=== PATIENT | male | born 1960 ===

== ENCOUNTER 2024-03-12 16:34 | Outpatient (CLI) | payer OTHER, SELFPAY ==
--- OUTSIDE RECORDS SUMMARY | 2024-03-12 16:52 | XMS_ITS | Encounter Summary ---
Author Organization [facility] Address [address] [place] [address] Care Team Providers Care Aerosol Supervisor Name Role Phone None, Provider Primary Care Provider Unavailabl e Encounter Details Date Type Department Care Team (Late st Contact Info) Description 04/27/2021 Lab Requisition [facility] Pathology & Laboratory Medicine - [address] [address] Lele Aponte MD [address] [place] [address] ,[facility] [address] [place] [address] Encounter for other general examination Social History Tobacco Use Types Packs/Day Years Used Date Smoking Tobacco: Never Assessed Sex and Gender Information Value Date Recorded Sex Assigned at Not on file Gender Identity Not on file Sexual Orientation Not on file documented as of this encounter Plan of Treatment Not on file documented as of this encounter Procedures Procedure Name Priority Date/Time Associated Diagnosis Comments SURGICAL PATHOLOGY Today 04/27/2021 13 :08 EST documented in this encounter Results * SURGICAL PATHOLOGY (04/27/2021 13:08 EST) Note to Patient The following pathology results have been interpreted by your pathologist and may be available to you before your health provider has had the opportunity to review them. Please allow time for your provider to receive these results and explore management options, if applicable. 04/30/2021 10:48 EST [facility] Final Diagnosis A. SOFT TISSUE, LEFT KNEE SYNOVIUM, BIOPSY: - Hyperplastic synovial tissue with foreign body giant cell reaction and chronic inflammation including plasma cells. 04/30/2021 10:48 EST [facility] Diagnosis Comment Focal weakly polarizable material is noted, which may be compatible with joint injections. Please correlate with clinical history. 04/30/2021 10:48 [facility] Attestation There was significant resident/fellow involvement in the diagnostic evaluation of this case. By the signature below, the attending physician certifies that they have personally conducted a gross and/or microscopic examination of the described specimens and rendered or confirmed the above diagnosis. 04/30/2021 10:48 [facility] at 1047 Clinical History Left knee DJD 04/30/2021 10:48 [facility] Gross Description A. Received in formalin labelled with proper patient identification (initials M, L) and left knee synovium are two fragments of fibrofatty tissue (6.9 x 3.7 x 0.6 cm and 5.2 x 4.1 x 0.5 cm). The surface is pale bishop, smooth with small focal nodularity. The cut surface is pale yellow and smooth. Propulsion Motor [employer] Generator Repairer sections from each specimen are submitted in A1. HARPREET MILIAN MD 04/28/2021 14:52 04/30/2021 10:48 [facility] Resident/Emmanuel w: Harpreet Milian MD 04/30/2021 10:48 [facility] Performing Lab [facility] 04/30/2021 10:48 [facility] Scanned Images 04/30/2021 10:48 [facility] Tissue ENTIRE SYNOVIAL MEMBRANE OF JOINT / Unknown 04/27/2021 13:08 EST 04/27/2021 23:50 EST Lele Aponte MD PATHOLOGY ORDERABLE S [facility] [address] [place] [address] documented in this encounter Visit Diagnoses Diagnosis Encounter for other general examination documented in this encounter Care Teams Aerosol Supervisor Relationship Specialty Start Date End Date None, Provider PCP - General 04/14/21 documented as of this encounter
--- OUTSIDE RECORDS SUMMARY | 2024-03-12 16:52 | XMS_ITS | Continuity of Care Document ---
Author Organization [facility] Address [address] [place] [address] Care Team Providers Care National Account Representative Name Role Phone Cj Worthy Primary Care Physician Encounter [facility] Date(s): 12/11/23 - 12/11/[address] [address] Discharge Disposition: Home or Self Care Attending Physician: Cj Worthy Admitting Physician: Cj Worthy Referring Physician: Cj Worthy Allergies, Adverse Reactions, Alerts No Known Medication Allergies Assessment and Plan Future Appointments Future Scheduled Tests Laboratory* Comprehensive Metabolic Panel 07/27/23 * Creatine Kinase 07/27/23 * Lipid Panel 07/27/23 * Lipid Panel 04/24/23 * PSA Screen 01/23/23 * Hemoglobin A1c 04/24/23 * Hemoglobin A1c 07/27/23 Immunizations Given and Recorded Vaccine Date Status Refusal Reason tetanus/diphth/pertuss (Tdap) adult/adol 07/27/23 Given tetanus/diphth/pertuss (Tdap) adult/adol 08/02/07 Recorded SARS-CoV-2 (COVID-19) mRNA-1273 vaccine 10/02/20 R ecorded SARS-CoV-2 (COVID-19) mRNA-1273 vaccine 09/03/20 R ecorded influenza, unspecified formulation 03/31/17 Record ed influenza virus vaccine, inactivated 03/07/08 Trae rded Medications AAA - Misc Prescription 90 EA, TAKE ONE TABLET BY MOUTH EVERY DAY, 0 Refill(s) Start Date: 07/08/22 Status: Ordered aspirin 81 mg oral capsule 81 mg = 1 cap, Oral, Daily, do not exceed 48 capsules in 24 hours, # 30 cap, 0 Refill(s) Start Date: 10/05/21 Status: Ordered atorvastatin 10 mg oral tablet 20 mg = 2 tab, Oral, Daily, # 180 tab, 0 Refill(s), Pharmacy: [facility], 162.56, cm, 10/14/21 8:50:00 EDT, Height, 92.71, kg, 07/27/23 7:57:00 EDT, Weight Dosing Start Date: 07/27/23 Status: Ordered famotidine 20 mg oral tablet 20 mg = 1 tab, Oral, BID, # 180 tab, 3 Refill(s), Pharmacy: [facility], 162.56, cm, 10/14/21 8:50:00 EDT, Height, 92.71, kg, 07/27/23 7:57:00 EDT, Weight Dosing Start Date: 07/27/23 Status: Ordered glucometer glucometer, once a day testing NIDDM E11.9, Supply, See instructions, # 1 EA, 0 Refill(s), Pharmacy: [facility] Start Date: 07/31/23 Status: Ordered lancets lancets, once a day testing NIDDM E11.9, Supply, See instructions, # 100 EA, 3 Refill(s), Pharmacy:[facility] Start Date: 07/31/23 Status: Ordered lisinopril 5 mg oral tablet 5 mg = 1 tab, Oral, Daily, # 90 tab, 1 Refill(s), Pharmacy: [facility], 162.56, cm, 10/14/21 8:50:00 EDT, Height, 92.71, kg, 07/27/23 7:57:00 EDT, Weight Dosing Start Date: 09/04/23 Status: Ordered metFORMIN 500 mg oral tablet 500 mg = 1 tab, Oral, BID, # 180 tab, 1 Refill(s), Pharmacy: [facility], 162.56, cm, 10/14/21 8:50:00 EDT, Height, 92.71, kg, 07/27/23 7:57:00 EDT, Weight Dosing Start Date: 09/04/23 Status: Ordered Metoprolol Succinate ER 50 mg oral tablet, extended release 1 tab, Oral, Daily, # 90 tab, 2 Refill(s), Pharmacy: [facility], 162.56, cm, 10/14/21 8:50:00 EDT, Height, 92.71, kg, 07/27/23 7:57:00 EDT, Weight Dosing Start Date: 07/27/23 Status: Ordered multivitamin adult, oral tablet Oral, Daily, 0 Refill(s) Start Date: 10/05/21 Status: Ordered test strips test strips, once a day testing NIDDM E11.9, Supply, See instructions, # 100 EA, 3 Refill(s), Pharmacy: [facility] Start Date: 07/31/23 Status: Ordered Problem List Condition Confirmation Course Effective Dates Status H ealth Status Informant Atopic dermatitis Confirmed Active Bilateral carpal tunnel syndrome Confirmed Active Dyslipidemia Confirmed Active Essential hypertension Confirmed Active External hemorrhoids Confirmed 04/17/19 Active GERD (gastroesophageal reflux disease) Confirmed Active Total knee replacement status 1 Confirmed Active Jaw pain Confirmed Active Left knee pain Confirmed Active Long-term current use of drug therapy Confirmed Active Obesity Confirmed Active Old anterior cruciate ligament disruption Confirmed 08/21/20 Active Onychomycosis Confirmed Active Pain in right foot Confirmed Active Pain of left elbow joint Confirmed Active Stenosing tenosynovitis of finger Confirmed Active Type 2 diabetes mellitus Confirmed Active Vascular calcification Confirmed Active 1left Procedures Procedure Date Related Diagnosis Body Site Status Total knee arthroplasty 1 04/26/21 Completed Colonoscopy 2 09/29/16 Completed 1Left Meniscectomy Per Dr. Domingo many years ago 2Hemorrhoids, 10 yr f/u recommended Results Laboratory List Name Date Hemoglobin A1c 12/11/23 PSA Screen 12/11/23 Most recent to oldest [Reference Range]: 1 Hemoglobin A1c [4.0-5.6 %] 6.5 % 1 *HI* (12/11/23 8:36 AM) PSA Total Screening [0.00-4.00 ng/mL] 5. 08 ng/mL 2 *HI* (12/11/23 8:36 AM) 1Interpretive Data: New test method effective 06-13-23. Establishment of new HA1c baseline is recommended. The following A1c interpretive data reflect the 2017 [place] [employer] Association (ADA) guidelinesand will be reported with each A1c result: Normal: <5.7% Prediabetes: 5.7 - 6.4% Diagnostic for diabetes (if confirmed): ???6.5% 2Interpretive Data: The testing method is an heterogeneous enzyme Immunoassay manufactured by [employer] and performed on the [employer] system. Values obtained with different assay methods or kits may be different and cannot be used interchangeably. Test results cannot be interpreted as absolute evidence for the presence or absence of malignant disease. Social History Social History Type Response Smoking Status Smoking tobacco use: Never tobacco user;Smokeless tobacco user within last 30 days entered on: 12/11/23 Sex Male Implantable Device List Procedure Provider Procedure Date Device Type Site L TKA Unknown 04/26/21 Unknown Unknown Device Identifier Serial Number Lot or Batch Number Manufacturing Date Expiration Date Distinct Identification Code MRI Safety Implantable Status Assigning Authority Unknown 1 Unknown Unknown Unknown Unknown Unknown Unknown Active U nknown 1S&N size 6 Martha 11 left non-porous tibial base plate; S&N 26 mm Martha 11 biconvex patellar component;S&N size 5-6 11 mm legion high flexion articular insert;S&N size 6 left posterior stabilized legion oxinium femoral component Patient Care team information Care Team Personnel Name: jC Worthy Position: Physician Member Role: Primary Care Physician Address: Address: [address] [place] [address] [place] [address]- Care Team Related Persons Name: DOROTHY ALBRECHT Address: Home [address] [place] [address], [id number] [phone] [id number]
--- OUTSIDE RECORDS SUMMARY | 2024-03-12 16:52 | XMS_ITS | Referral Summary ---
Author Organization [facility] Address [address] [place] [address] Care Team Providers Care Clinical Pharmacy Manager Name Role Phone None, Provider Primary Care Provider Unavailabl e Social History Tobacco Use Types Packs/Day Years Used Date Smoking Tobacco: Never Assessed Sex and Gender Information Value Date Recorded Sex Assigned at Not on file Gender Identity Not on file Sexual Orientation Not on file Plan of Treatment Not on file Care Teams Clinical Pharmacy Manager Relationship Specialty Start Date End Date None, Provider PCP - General 04/14/21
--- OUTSIDE RECORDS SUMMARY | 2024-03-12 16:52 | XMS_ITS | Continuity of Care Document ---
Author Organization [facility] Address [address] [place] [address] Care Team Providers Care Central Communications Specialist Name Role Phone Swathi Pineda Primary Care Physician [phone] Encounter [facility] Date(s): 01/20/23 - 01/20/[address] [address] Discharge Disposition: Home or Self Care Attending Physician: Swathi Pineda NP Admitting Physician: Swathi Pineda NP Referring Physician: Swathi Pineda PROPERTY MAINTENANCE SUPERVISOR Allergies, Adverse Reactions, Alerts No Known Medication Allergies Assessment and Plan Future Appointments Immunizations Given and Recorded Vaccine Date Status Refusal Reason SARS-CoV-2 (COVID-19) mRNA-1273 vaccine 10/02/20 R ecorded SARS-CoV-2 (COVID-19) mRNA-1273 vaccine 09/03/20 R ecorded influenza, unspecified formulation 03/31/17 Record ed influenza virus vaccine, inactivated 03/07/08 Trae rded tetanus/diphth/pertuss (Tdap) adult/adol 08/02/07 Recorded Medications [facility] [place] 90 EA, TAKE ONE TABLET BY MOUTH EVERY DAY, 0 Refill(s) Start Date: 07/08/22 Status: Ordered aspirin 81 mg oral capsule 81 mg = 1 cap, Oral, Daily, do not exceed 48 capsules in 24 hours, # 30 cap, 0 Refill(s) Start Date: 10/05/21 Status: Ordered atorvastatin 10 mg oral tablet 10 mg = 1 tab, Oral, Daily, # 90 tab, 2 Refill(s), Pharmacy: [facility] Start Date: 03/29/22 Status: Ordered Biotin Forte oral tablet 1 tab, Oral, Daily, # 90 tab, 0 Refill(s) Start Date: 10/05/21 Status: Ordered famotidine 20 mg oral tablet See Instructions, 1 tab by mouth twice weekly as needed., # 90 tab, 3 Refill(s), Pharmacy: [facility] Start Date: 11/21/22 Status: Ordered lisinopril 5 mg oral tablet 5 mg = 1 tab, Oral, Daily, # 90 tab, 1 Refill(s), Pharmacy: [facility] Start Date: 11/21/22 Status: Ordered metFORMIN 500 mg oral tablet 500 mg = 1 tab, Oral, BID, # 180 tab, 3 Refill(s), Pharmacy: [facility] Start Date: 07/11/22 Status: Ordered Metoprolol Succinate ER 50 mg oral tablet, extended release 1 tab, Oral, Daily, # 90 tab, 2 Refill(s), Pharmacy: [facility] Start Date: 12/26/22 Status: Ordered multivitamin adult, oral tablet Oral, Daily, 0 Refill(s) Start Date: 10/05/21 Status: Ordered Vitamin C 500 mg oral tablet 500 mg = 1 tab, Oral, Daily, # 30 tab, 0 Refill(s) Start Date: 10/05/21 Status: Ordered vitamin E 400 intl units oral capsule 400 IntlUnit = 1 cap, Oral, Daily, # 30 cap, 0 Refill(s) Start Date: 10/05/21 Status: Ordered Problem List Condition Confirmation Course [...] f/u recommended Results Laboratory List Name Date Comprehensive Metabolic Panel (CMP) Hemoglobin A1c 01/20/23 Lipid Panel 01/20/23 Microalbumin/Creatinine Ratio Urine Most recent to oldest [Reference Range]: 1 BUN [7-18 mg/dL] 19 mg/dL *HI* (01/20/23 7:26 AM) Cholesterol Total [50-200 mg/dL] 145 mg/ dL (01/20/23 7:26 AM) LDL [0-130 mg/dL] 85 mg/dL (01/20/23 7:26 AM) Glucose Level [74-106 mg/dL] 143 mg/dL *HI* (01/20/23: AM) Potassium Level [3.5-5.1 mmol/L] 4.4 mmo l/L (01/20/23 7:26 AM) HDL [40-60 mg/dL] 51 mg/dL (01/20/23 7:26 AM) AST [15-37 unit/L] 14 unit/L *LOW* (01/20/23 7:26 AM) ALT [16-63 unit/L] 28 unit/L (01/20/23 7:26 AM) Sodium Level [136-145 mmol/L] 138 mmol/L (01/20/23 7:26 AM) Triglycerides [0-150 mg/dL] 43 mg/dL (01/20/23 7:26 AM) Calcium Level [8.5-10.1 mg/dL] 8.8 mg/dL (01/20/23 7:26 AM) Albumin Level [3.4-5.0 g/dL] 3.9 g/dL (01/20/23 7:26 AM) Protein Total [6.4-8.2 g/dL] 7.3 g/dL (01/20/23 7:26 AM) Bilirubin Total [0.2-1.0 mg/dL] 0.5 mg/d L (01/20/23 7:26 AM) Alk Phos [46-146 unit/L] 85 unit/L (01/20/23 7:26 AM) CO2 [21-32 mmol/L] 30 mmol/L (01/20/23 7:26 AM) eGFR Non-AA [>=60] 80 (01/20/23 7:26 AM) eGFR AA [>=60] 80 (01/20/23 7:26 AM) U Creatinine 109 mg/dL *NA* (01/20/23 7:26 AM) Hemoglobin A1c [4.0-6.0 %] 6.4 % *HI* (01/20/23 7:26 AM) Chloride Level [98-107 mmol/L] 104 mmol/ L (01/20/23 7:26 AM) U Microalb/Creat [0.0-30.0 mcg/mg] 7.5 m cg/mg (01/20/23 7:26 AM) U Microalb [0.0-20.0] 8.2 (01/20/23 7:26 AM) Creatinine Level [0.70-1.30 mg/dL] 1.06 mg/dL (01/20/23 7:26 AM) Social History Social History Type Response Tobacco Never tobacco user T obacco Use:. Sex Male Implantable Device List Procedure Provider [...] Care team information Care Team Personnel Name: Swathi Pineda NP Position: Physician Member Role: Primary Care Physician Address: Address: [place], [place] [address] Care Team Related Persons Name: ALBRECHT, DOROTHY Nolasco Address: Home [address] [place] [address], [phone]
--- OUTSIDE RECORDS SUMMARY | 2024-03-12 16:52 | XMS_ITS | Clinical Summary ---
Author Organization [facility] Address [address] [place] [address] Care Team Providers Care Mold Yarn Supervisor Name Role Phone None, Provider Primary Care Provider Unavailabl e Social History Tobacco Use Types Packs/Day Years Used Date Smoking Tobacco: Never Assessed Sex and Gender Information Value Date Recorded Sex Assigned at Not on file Gender Identity Not on file Sexual Orientation Not on file Plan of Treatment Health Maintenance Due Date Last Done Comments Hepatitis C Screen 1960 RSV Immunization ( o r 60+ Years) (1 - 1-dose 60+ series) 2021 COVID-19 Vaccine (2022-24 season) 2023 Care Teams Mold Yarn Supervisor Relationship Specialty Start Date End Date None, Provider PCP - General 04/14/21
[2024-03-13 17:56] LABS: PSA, Diagnostic 3.9 ng/mL (<=4.5)
== END 2024-03-12 16:35 | disposition home or self-care (01) ==
LOC: LBO 16:40
PROVIDERS: PCP Physician Assistant; Visit Provider Nurse Practitioner Gerontology
DX: R97.20 Elevated prostate specific antigen [PSA] (principal); R35.1 Nocturia; R39.9 Unspecified symptoms and signs involving the genitourinary system
CPT/HCPCS: 36415; 84153

== ENCOUNTER 2025-01-30 15:44 | Outpatient (REF) | payer OTHER, SELFPAY ==
--- NOTE | 2025-01-30 15:20 | PROST_PTH ---
PATIENT: Hector Hernandez LOC: [facility] U#:[id number] AGE/SX: 64/M ROOM: RE01/30/[address]: Peterson Bravo MD : 1960 BED: DIS: 01/30/2025 SPEC #: [id number] RECD: 01/30/25 17:19 STATUS: DAVID RE #: [id number] ALAN: 01/30/25 15:[address]: Peterson Bravo DEPT: Surgical Specimen RECD BY: Monika Jimenez ENTERED: 01/30/25 17:21 SP TYPE: PROST OTHR DR: Cj Worthy Tissues: 1 - PROSTATE NEEDLE BIOPSY 2 - PROSTATE NEEDLE BIOPSY 3 - PROSTATE NEEDLE BIOPSY 4 - PROSTATE NEEDLE BIOPSY 5 - PROSTATE NEEDLE BIOPSY 6 - PROSTATE NEEDLE BIOPSY 7 - PROSTATE NEEDLE BIOPSY 8 - PROSTATE NEEDLE BIOPSY 9 - PROSTATE NEEDLE BIOPSY 10 - PROSTATE NEEDLE BIOPSY 11 - PROSTATE NEEDLE BIOPSY 12 - PROSTATE NEEDLE BIOPSY Procedures: GROSS AND MICRO LEVEL 4 Comments: [id number]
== END 2025-01-30 15:45 | disposition home or self-care (01) ==
LOC: LBN 15:44
PROVIDERS: PCP Physician Assistant; Visit Provider Urology
DX: C61 Malignant neoplasm of prostate (principal)
CPT/HCPCS: 88305

== ENCOUNTER 2025-03-13 16:06 | Outpatient (CLI) | payer OTHER, SELFPAY ==
[2025-03-13 15:53] LABS: HCT 42.5 % (40.0-50.0); HGB 14.3 g/dL (13.5-17.5); MCH 31.2 pg (27.0-33.0); MCHC 33.6 % (32.0-36.0); MCV 93 fL (80-95); MPV 9.4 fL (8.0-11.0); Platelet Count 250 10^3/uL (130-400); RBC 4.58 10^6/uL (4.36-5.78); RDW 13.2 % (11.8-14.1); RDW-SD 45.1 fL; WBC 6.35 10^3/uL (4.4-10.8)
[2025-03-13 16:42] LABS: ALT 28 U/L (16-63); AST 18 U/L (15-37); Albumin 4.0 g/dL (3.4-5.0); Alkaline Phosphatase 91 U/L (46-116); Anion Gap 5.7 mmol/L (3-11); BUN 18 mg/dL (7-18); Bilirubin, Total 0.3 mg/dL (0.2-1.0); CO2 30.3 mmol/L (21.0-32.0); Calcium 9.0 mg/dL (8.5-10.1); Chloride 104 mmol/L (98-107); Glucose 104 mg/dL (74-106); Potassium 4.2 mmol/L (3.5-5.1); Sodium 140 mmol/L (136-145); Total Protein 7.5 g/dL (6.4-8.2)
== END 2025-03-13 16:07 | disposition home or self-care (01) ==
LOC: LBO 16:07
PROVIDERS: PCP Physician Assistant; Visit Provider Radiology Radiation Oncology
DX: C61 Malignant neoplasm of prostate (principal)
CPT/HCPCS: 36415; 80053; 84153; 84403; 85027; 85025

== ENCOUNTER 2025-05-06 07:16 | Outpatient (CLI) | payer OTHER, SELFPAY ==
[2025-05-06 13:36] LABS: Abs Immature Grans 0.03 10^3/uL (0.0-0.06); HCT 42.0 % (40.0-50.0); HGB 14.1 g/dL (13.5-17.5); Immature Grans % 0.5 %; MCH 30.7 pg (27.0-33.0); MCHC 33.6 % (32.0-36.0); MCV 92 fL (80-95); MPV 9.5 fL (8.0-11.0); Platelet Count 273 10^3/uL (130-400); RBC 4.59 10^6/uL (4.36-5.78); RDW 13.2 % (11.8-14.1); RDW-SD 44.1 fL; WBC 6.24 10^3/uL (4.4-10.8)
[2025-05-06 13:46] LABS: ALT 40 U/L (10-49); AST 29 U/L (<34); Albumin 4.4 g/dL (3.2-5.0); Alkaline Phosphatase 85 U/L (46-116); Anion Gap 7.3 mmol/L (3-11); BUN 18 mg/dL (9-23); Bilirubin, Total 0.7 mg/dL (0.2-1.2); CO2 28.7 mmol/L (20.0-31.0); Calcium 9.3 mg/dL (8.3-10.6); Chloride 106 mmol/L (98-107); Glucose 163 mg/dL (74-106); Potassium 4.1 mmol/L (3.5-5.1); Sodium 142 mmol/L (136-145); Total Protein 7.0 g/dL (5.7-8.2)
== END 2025-05-06 07:17 | disposition home or self-care (01) ==
PROVIDERS: PCP Physician Assistant; Visit Provider Radiology Radiation Oncology
DX: C61 Malignant neoplasm of prostate (principal); C77.5 Secondary and unspecified malignant neoplasm of intrapelvic lymph nodes
CPT/HCPCS: 36415; 80053; 84153; 84403; 85027; 85025